=== PATIENT | female | born 1990 | race Hispanic/Latino ===

== ENCOUNTER 2018-04-06 08:30 | Outpatient (CLI) | payer OTHER, SELFPAY | END 2018-04-06 08:31 | disposition home or self-care (01) | LOC: BICULT 08:30 | PROVIDERS: ATTEND Family Medicine | DX: R10.2 Pelvic and perineal pain (principal); Q51.3 Bicornate uterus; D25.9 Leiomyoma of uterus, unspecified | CPT/HCPCS: 76856 ==